=== PATIENT | female | born 1975 | race Caucasian/White ===

== ENCOUNTER → 2020-07-12 | Outpatient (CLI) | payer MEDICARE | LOC: HYPER 08:40 | PROVIDERS: ATTEND Emergency Medicine Emergency Medical Services | DX: R21 Rash and other nonspecific skin eruption (principal); L98.412 Non-pressure chronic ulcer of buttock with fat layer exposed; L28.1 Prurigo nodularis; R00.0 Tachycardia, unspecified; E16.2 Hypoglycemia, unspecified; E03.9 Hypothyroidism, unspecified; E78.5 Hyperlipidemia, unspecified; E66.01 Morbid (severe) obesity due to excess calories; G89.4 Chronic pain syndrome; G62.9 Polyneuropathy, unspecified; D68.62 Lupus anticoagulant syndrome; D50.9 Iron deficiency anemia, unspecified; J45.998 Other asthma; M32.9 Systemic lupus erythematosus, unspecified; F34.1 Dysthymic disorder; F90.9 Attention-deficit hyperactivity disorder, unspecified type; F32.9 Major depressive disorder, single episode, unspecified; F41.9 Anxiety disorder, unspecified; Z68.41 Body mass index [BMI] 40.0-44.9, adult ==

== ENCOUNTER → 2020-10-25 | Outpatient (CLI) | payer OTHER | LOC: HYPER 08:24 | PROVIDERS: ATTEND Emergency Medicine Emergency Medical Services | DX: L98.412 Non-pressure chronic ulcer of buttock with fat layer exposed (principal); R21 Rash and other nonspecific skin eruption; L28.1 Prurigo nodularis; S92.309D Fracture of unspecified metatarsal bone(s), unspecified foot, subsequent encounter for fracture with routine healing; R00.0 Tachycardia, unspecified; G89.4 Chronic pain syndrome; E16.2 Hypoglycemia, unspecified; E03.9 Hypothyroidism, unspecified; D68.62 Lupus anticoagulant syndrome; J45.998 Other asthma; D50.9 Iron deficiency anemia, unspecified; L84 Corns and callosities; R32 Unspecified urinary incontinence; M32.9 Systemic lupus erythematosus, unspecified; E78.5 Hyperlipidemia, unspecified; G62.9 Polyneuropathy, unspecified; E66.01 Morbid (severe) obesity due to excess calories; F34.1 Dysthymic disorder; F41.9 Anxiety disorder, unspecified; F32.9 Major depressive disorder, single episode, unspecified; F90.9 Attention-deficit hyperactivity disorder, unspecified type; F98.8 Other specified behavioral and emotional disorders with onset usually occurring in childhood and adolescence; Z68.41 Body mass index [BMI] 40.0-44.9, adult; Z79.84 Long term (current) use of oral hypoglycemic drugs; Z79.899 Other long term (current) drug therapy; X58.XXXD Exposure to other specified factors, subsequent encounter ==

== ENCOUNTER → 2020-11-09 | Outpatient (CLI) | payer OTHER | LOC: HYPER 11:01 | PROVIDERS: ATTEND Emergency Medicine Emergency Medical Services | DX: R21 Rash and other nonspecific skin eruption (principal); L98.412 Non-pressure chronic ulcer of buttock with fat layer exposed; L28.1 Prurigo nodularis; R00.0 Tachycardia, unspecified; G89.4 Chronic pain syndrome; E16.2 Hypoglycemia, unspecified; E03.9 Hypothyroidism, unspecified; D68.62 Lupus anticoagulant syndrome; J45.998 Other asthma; D50.9 Iron deficiency anemia, unspecified; L84 Corns and callosities; R32 Unspecified urinary incontinence; M32.9 Systemic lupus erythematosus, unspecified; E78.5 Hyperlipidemia, unspecified; G62.9 Polyneuropathy, unspecified; E66.01 Morbid (severe) obesity due to excess calories; F34.1 Dysthymic disorder; F41.9 Anxiety disorder, unspecified; F32.9 Major depressive disorder, single episode, unspecified; F90.9 Attention-deficit hyperactivity disorder, unspecified type; F98.8 Other specified behavioral and emotional disorders with onset usually occurring in childhood and adolescence; Z68.41 Body mass index [BMI] 40.0-44.9, adult; Z79.84 Long term (current) use of oral hypoglycemic drugs; Z79.899 Other long term (current) drug therapy ==

== ENCOUNTER → 2020-11-22 | Outpatient (CLI) | payer OTHER | LOC: HYPER 10:38 | PROVIDERS: ATTEND Emergency Medicine Emergency Medical Services | DX: R21 Rash and other nonspecific skin eruption (principal); L98.412 Non-pressure chronic ulcer of buttock with fat layer exposed; L28.1 Prurigo nodularis; R00.0 Tachycardia, unspecified; G89.4 Chronic pain syndrome; E16.2 Hypoglycemia, unspecified; E03.9 Hypothyroidism, unspecified; D68.62 Lupus anticoagulant syndrome; J45.998 Other asthma; D50.9 Iron deficiency anemia, unspecified; L84 Corns and callosities; R32 Unspecified urinary incontinence; M32.9 Systemic lupus erythematosus, unspecified; E78.5 Hyperlipidemia, unspecified; G62.9 Polyneuropathy, unspecified; E66.01 Morbid (severe) obesity due to excess calories; F34.1 Dysthymic disorder; F41.9 Anxiety disorder, unspecified; F32.9 Major depressive disorder, single episode, unspecified; F90.9 Attention-deficit hyperactivity disorder, unspecified type; F98.8 Other specified behavioral and emotional disorders with onset usually occurring in childhood and adolescence; Z68.41 Body mass index [BMI] 40.0-44.9, adult; Z79.84 Long term (current) use of oral hypoglycemic drugs; Z79.899 Other long term (current) drug therapy ==